=== PATIENT | female | born 1975 | race Asian ===

== ENCOUNTER 2023-05-06 13:22 | Emergency (ER) | payer OTHER, SELFPAY ==
[2023-05-06 13:25] VITALS: BP 126/61
--- NOTE | 2023-05-06 14:05 | ED.GENMED ---
History of Present Illness
General
Chief Complaint: Allergic Reaction
Source: patient
Exam Limitations: none
Time Seen by Provider: 05/06/23 13:39
Travel History
Have you had any contact with someone who has COVID-19?: No
Do you have any symptoms of coronavirus? Fever > 100 degrees, chills, cough, shortness of breath, sore throat, loss of taste or smell, muscle aches, or headache?: No
History of Present Illness
History of Present Illness:
See MDM
Past History
Past History
ED Past Medical History: None
ED Past Surgical History: Other (Lumpectomy)
Social History
Tobacco: Former smoker
Alcohol: Occasional
Drug: None
Personal:
Living: with family
Employment: Employed
Phy Exam
Physical Exam
Physical Exam:
See MDM
Course
Orders/Labs/Results
Orders:
Orders
05/06/23 14:05
Famotidine [Pepcid] 20 mg IV NOW STA
HYDROmorphone [Dilaudid] 0.5 mg IV NOW STA
Vital Signs
Initial and Last Documented VS:
Initial Vital Signs
Temp Pulse Resp BP Pulse Ox
98.3 F 118 15 126/61 100
05/06/23 13:25 05/06/23 13:25 05/06/23 13:25 05/06/23 13:25 05/06/23 13:25
Last Documented Vital Signs
Temp Pulse Resp BP Pulse Ox
98.3 F 105 20 130/79 97
05/06/23 13:25 05/06/23 15:41 05/06/23 15:41 05/06/23 14:10 05/06/23 15:41
MDM/Problems Addressed
Differential Diagnosis Includes:
HPI and MDM Narrative:
48-year-old female presenting with an allergic reaction. Patient was due for an MRI earlier today. She had lower abdominal discomfort so she took a Celebrex. Soon after taking Celebrex, she felt her throat feels itchy and she developed a diffuse
erythematous rash. She went to urgent care where she was given Benadryl. She attempted to drink oral Decadron but she threw it up. EMS arrived and provided IV Benadryl and IV Decadron. On arrival, patient states she is feeling better.
A similar issue happened before. At that time, it was unsure what the cause was. Patient now remembering that she had taken Celebrex as well at that time
Celebrex was now placed as an allergy
Physical exam
General: Well appearing and non-toxic
HEENT: protecting airway. Injected sclera bilaterally. Pupils equal react
Neck: appears supple
CV: No evidence of cyanosis. Regular rate and rhythm
Resp: No accessory muscle use
Abd: Non-distended
Extremities: No deformities
Neuro: alert
Psych: Normal affect
Skin: Erythematous rash to face, chest and back
Problems Addressed including Acute and Chronic Conditions affecting care:
1. Allergic reaction
Acuity: acute
Prognosis: stable
Details: Symptoms are improving after IV Benadryl and IV Decadron. Will add IV Pepcid
2. Headache
Acuity: acute
Prognosis: stable
Details: Given the NSAID concern, will avoid Toradol. Will give dose of IV dilaudid
Updates
On multiple reassessments, patient feeling better and feels comfortable going home. Discussed return precautions
Differential Diagnosis (but not limited to): Serum sickness, allergic reaction, anaphylaxis
Testing considered: Blood work
Drug therapy (if applicable): OTC meds, please see d/c instruction regarding Rx drugs
Amount and/or Complexity of Data Reviewed
Clinical info obtained from: Patient
External data reviewed: N/A
Labs I independently reviewed (but not limited to): N/A
Radiology: N/A
Pulse Ox: not hypoxic
EKG independently reviewed: N/A
Rubber Goods Assembler: N/A
Critical Care: N/A
Risk of Complication:
Social Determinants of health: Good social support
Discussed with other providers: N/A
Escalation of Care includes Admit/Obs: After being observed in the Emergency Department, pt stable for discharge.
Occasional wrong word or 'sound a like' substitutions may have occurred due to the inherent limitations of voice recognition software. Read the chart carefully and recognize, using context, where substitutions have occurred.
*Critical Care Note
Total Time (30-74mins, 75-104mins- exclusive of procedures): Not Applicable
ED Attending Note
-
Portions of this chart may have been created with voice recognition software.� Occasional wrong word or��sound alike� substitutions may have occurred due to the inherent limitations of voice recognition software.
Discharge Plan
Departure
Patient Disposition: Home (Routine Discharge)
Date of Disposition: 05/06/23
Time of Disposition: 15:33
Patient with high blood pressure during this ER visit?: No
Discharge Problem:
Allergic reaction
Instructions: Allergic Reaction ED
Prescriptions:
New
prednisone 20 mg tablet
40 mg PO DAILY Qty: 10 0RF
famotidine [Acid Controller] 20 mg tablet
20 mg PO BID Qty: 10 0RF
epinephrine [EpiPen 2-Ajit] 0.3 mg/0.3 mL auto-injector
0.3 mg IM ONCE Qty: 2 0RF
No Action
celecoxib 200 mg Capsule
200 mg PO DAILY
norethindrone-e.estradiol-iron 1 mg-20 mcg (21)/75 mg (7) tablet
1 tab PO DAILY
doxycycline hyclate 100 mg Capsule
100 mg PO Q12 13 Days Qty: 26 0RF
metronidazole 500 mg Tablet
500 mg PO Q12 13 Days Qty: 26 0RF
loratadine [Claritin] 10 mg tablet
10 mg PO DAILY Qty: 14 0RF
Referrals:
Ga Beebe MD [Family Provider] -
Activity Restrictions/Additional Instructions:
Please return for any worsening symptoms.
You may return at any time if you have further concerns.
Please follow up with your doctor at the first available appointment, preferably this week.
Please avoid Celebrex.
Thank you for choosing [facility].
Interventions
Interventions:
*Risk Screen - Suicide Last Done: 05/06/23 13:25
*General Assessment Last Done: 05/06/23 13:25
*Neglect/Abuse Screening Last Done: 05/06/23 13:25
ED- Fall Risk Assessment Last Done: 05/06/23 13:25
*ED COVID-19 Vaccine History Last Done: 05/06/23 13:25
*Nursing Disposition Last Done: 05/06/23 15:41
ED- Cardiac Assessment Last Done: 05/06/23 13:29
ED- Pulmonary Assessment Last Done: 05/06/23 13:25
ED-Skin Assessment Last Done: 05/06/23 13:25
Discharge Date and Time
Discharge Date/Time: 05/06/23 15:41
[2023-05-06] MEDS: DILAUDID 0.5 MG IV (14:08)
[2023-05-06] MEDS: PEPCID 20 MG IV (14:08)
[2023-05-06 14:10] VITALS: BP 130/79
== END 2023-05-06 15:41 | disposition home or self-care (01) ==
LOC: EMR 13:22
PROVIDERS: EMERGENCY PHYSICIAN Student in an Organized Health Care Education/Training Program; FAMILY PHYSICIAN Family Medicine
DX: T78.40XA Allergy, unspecified, initial encounter (principal); X58.XXXA Exposure to other specified factors, initial encounter; Z87.891 Personal history of nicotine dependence
CPT/HCPCS: 99283; 96374; 96375

== ENCOUNTER → 2024-03-27 09:02 | Outpatient (REF) | payer OTHER, SELFPAY | LOC: WDC 09:02 | PROVIDERS: ATTENDING PHYSICIAN Obstetrics & Gynecology; FAMILY PHYSICIAN Family Medicine | DX: Z12.31 Encounter for screening mammogram for malignant neoplasm of breast (principal) | CPT/HCPCS: 77063; 77067 ==

== ENCOUNTER → 2024-05-31 08:48 | Outpatient (REF) | payer OTHER, SELFPAY | LOC: WDC 08:48 | PROVIDERS: ATTENDING PHYSICIAN Obstetrics & Gynecology; FAMILY PHYSICIAN Family Medicine | DX: R92.30 Dense breasts, unspecified (principal) | CPT/HCPCS: 76641 ==